=== PATIENT | female | born 1965 | race Caucasian/White ===

== ENCOUNTER → 2019-05-22 | Day surgery (SDC) | payer BC ==
[2019-05-22 13:24] VITALS: BP 134/78; PULSE 103; RESP 16; TEMP 98.8
--- NOTE | 2019-05-22 13:36 | USB ---
EXAMINATION TYPE: US biopsy breast VAD LT, MG 3D diag mammo wo cad LT DATE OF EXAM: 05/22/2019 CLINICAL HISTORY: R92.8 Abn mammo. TECHNIQUE: Ultrasound guided core biopsy of left breast. COMPARISON: Outside limited left breast ultrasound dated 05/11/2019 and 3-D left breast mammogram dated 05/11/2019 FINDINGS: The procedure of ultrasound guided core biopsy was explained to the patient. Benefits, alternatives, and risks were discussed. An informed consent was then obtained. Preprocedural timeout was performed. Preprocedural imaging demonstrated a taller than wide and 4 mm shadowing mass corresponding to the previously described mass at the 1:00 position in the left breast approximately 2-3 cm from the nipple. This is marked on images 7 and 8 of the preprocedural images. The patient was placed in supine positioning for imaging and for the procedure. The overlying skin was prepped and draped in usual sterile fashion. 10 cc of 1% lidocaine was used as anesthetic into the skin and subcutaneous tissue and subsequently 8 cc of 1% lidocaine with epinephrine was utilized to anesthetize the subcutaneous tissues up to the 4 mm mass at the 1:00 position in the left breast. Under ultrasound guidance, a 12-gauge vacuum assisted biopsy gun device was used to obtain 4 core samples. Following this, a ribbon-shaped biopsy marker at the site of biopsy. The patient tolerated the procedure well without any immediate complication. The patient was kept in the radiology department for short stay after the procedure and then discharged home in stable condition. Postprocedure mammogram demonstrates a 4 mm of architectural distortion in the upper outer quadrant of the left breast located approximately 4.5 cm from the nipple. This does not correlate with the reported marker denoting the biopsied mass on today's examination. Outside images will be obtained to determine as stable architectural distortion was noted on the outside mammogram report. IMPRESSION: Successful, uncomplicated ultrasound guided core biopsy of a 4 mm mass at the 1:00 position in the left breast, full pathology results to follow. Mammographic left upper outer quadrant architectural distortion is not concordant with biopsy marker placement. Consideration for 3-D guided biopsy was discussed with the patient. Prior to further decision making, outside more remote images will be obtained for comparison. Pathology Results: Benign LEFT BREAST LESION, NEEDLE CORE BIOPSY: Predominantly benign fibroadipose and vascular tissue with a small focus of a sclerosing adenosis spectrum lesion. Recommendation Follow up mammogram and ultrasound of the left breast in 6 months. MRI could be considered given the patient's history. RICCARDOD
== END ==
LOC: RADUSWWP 10:13
PROVIDERS: ATTEND Orthopaedic Surgery
DX: N60.22 Fibroadenosis of left breast (principal)
CPT/HCPCS: 88305; 77065; 77061; 19083; A4648; J2001